=== PATIENT | female | born 1980 | race Caucasian/White ===

== ENCOUNTER 2020-08-29 08:03 | Outpatient (REF) | payer OTHER, SELFPAY ==
[2020-08-29 09:27] LABS: SARS COV2 PCR INHOUSE NEGATIVE (Negative)
== END 2020-08-29 08:04 | disposition home or self-care (01) ==
LOC: HO.LAB 08:03
PROVIDERS: Visit Provider Anesthesiology
DX: R05 Cough (principal); R09.89 Other specified symptoms and signs involving the circulatory and respiratory systems
CPT/HCPCS: 87635

== ENCOUNTER → 2021-08-03 15:29 | Outpatient (BNVA) | payer OTHER, SELFPAY | PROVIDERS: Visit Provider Advanced Practice Midwife ==

== ENCOUNTER 2021-09-28 13:56 | Outpatient (REF) | payer OTHER, SELFPAY ==
[2021-09-29 01:19] LABS: CT PCR NOT DETECTED (Not Detect.); NG PCR NOT DETECTED (Not Detect.)
[2021-09-30 10:45] LABS: BV Int Neg Control Negative (Negative); BV Int Pos Control Positive (Positive)
[2021-10-03 01:06] LABS: HPV mRNA E6/E7 rflx Not Detected (Not Detected)
== END 2021-09-28 13:57 | disposition home or self-care (01) ==
LOC: HO.LAB 13:56
PROVIDERS: Visit Provider Advanced Practice Midwife
DX: Z01.419 Encounter for gynecological examination (general) (routine) without abnormal findings (principal); Z11.51 Encounter for screening for human papillomavirus (HPV); Z11.3 Encounter for screening for infections with a predominantly sexual mode of transmission; Z20.2 Contact with and (suspected) exposure to infections with a predominantly sexual mode of transmission; Z87.42 Personal history of other diseases of the female genital tract; Z98.890 Other specified postprocedural states
CPT/HCPCS: 87480; 87491; 87510; 87591; 87624; 87660; 88142

== ENCOUNTER 2021-12-07 08:25 | Outpatient (REF) | payer OTHER, SELFPAY | END 2021-12-07 08:26 | disposition home or self-care (01) | LOC: HO.LAB 08:25 | PROVIDERS: PCP Internal Medicine; Visit Provider Advanced Practice Midwife | DX: Z30.09 Encounter for other general counseling and advice on contraception (principal); R87.615 Unsatisfactory cytologic smear of cervix; Z87.42 Personal history of other diseases of the female genital tract | CPT/HCPCS: 88142 ==

== ENCOUNTER → 2021-12-26 13:57 | Outpatient (BNVA) | payer OTHER, SELFPAY | PROVIDERS: PCP Internal Medicine; Visit Provider Advanced Practice Midwife | DX: Z30.430 Encounter for insertion of intrauterine contraceptive device (principal) | CPT/HCPCS: 58300; 81025 ==

== ENCOUNTER → 2022-01-23 12:53 | Outpatient (BNVA) | payer OTHER, SELFPAY | PROVIDERS: Visit Provider Advanced Practice Midwife ==

== ENCOUNTER → 2022-12-04 13:50 | Outpatient (BNVA) | payer OTHER, SELFPAY | PROVIDERS: Visit Provider Advanced Practice Midwife | DX: Z13.89 Encounter for screening for other disorder (principal) ==

== ENCOUNTER 2023-01-07 08:02 | Outpatient (REF) | payer OTHER, SELFPAY ==
--- NOTE | ~2023-01-07 | MM_ITS ---
EXAMINATION: MM SCREENING DIGITAL BREAST TOMOSYNTHESIS, BILATERAL CLINICAL INFORMATION: Screening. Asymptomatic. The lifetime risk of breast cancer based on the Tyrer-Cuzick Model is 7.6%. COMPARISON: Mammography: November 23, 2020 and April 29, 2019 TECHNIQUE: Digital breast tomosynthesis is performed in both the craniocaudal and mediolateral oblique views along with computer-aided detection (CAD). Synthesized 2D images are generated from the tomosynthesis. FINDINGS: The breasts are heterogeneously dense, which may obscure small masses (ACR BI-RADS breast composition Category c). There are no significant masses, abnormal calcifications, or other abnormalities. MM/MM tomosynthesis screening BI IMPRESSION: No significant changes from prior exam. ASSESSMENT: BI-RADS 1: Negative RECOMMENDATION: Routine annual mammography screening. This patient's information was entered into a reminder system with a target due date for their next mammogram.
== END 2023-01-07 08:03 | disposition home or self-care (01) ==
LOC: HO.MAMMO 08:02
PROVIDERS: PCP Internal Medicine; Visit Provider Advanced Practice Midwife
DX: Z12.31 Encounter for screening mammogram for malignant neoplasm of breast (principal)
CPT/HCPCS: 77063; 77067

== ENCOUNTER 2023-12-24 12:47 | Outpatient (AMB) | payer OTHER, SELFPAY ==
--- NOTE | 2023-12-24 12:55 | A.OFFVIS_ITS ---
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 Doing well with no concerns. Reports cyclic breast tenderness. She tries to eat healthy and stays active with exercise. Kyleena use, regular monthly menses. Currently is sexually active. She denies vaginal itching and irritation. STI screening offered; she declines. Denies family history of breast, ovarian. FH colon cancer, UTD with her screening. Last pap smear 2021, negative. Mammogram: 2022. [facility] Medical History SARAY I (cervical intraepithelial neoplasia I) Adult acne Hypertension Surgical History History of loop electrical excision procedure (LEEP) Hx of dilation and curettage Family History Maternal Uncle Colon cancer Maternal Uncle Intestinal cancer Social History Household Members: Spouse Alcohol intake: current Alcohol intake frequency: a few times a month Patient Tobacco Use Status: Never used Tobacco Current occupational status: employed and student Current occupation: [employer] Sexual orientation: Straight/Heterosexual Gender identity: Female Female Reproductive History Menstrual Age of Menarche: 13 Date of last menstrual period: 12/03/23 Total pregnancies: 3 Full term: 2 Number of Living Children: 2 Ab spontaneous: 1 Date of last pap smear: 12/07/21 (neg 09/28/21 unsat neg hpv) History of abnormal pap smear: Yes (leep 2005) Date of Mammogram: 01/07/23 (Birad 1) Review of Systems Const All systems reviewed & are unremarkable except as noted in HPI and below Reports as per HPI Eyes Reports no additional complaints ENT Reports no additional complaints Card Reports no additional complaints Resp Reports no additional complaints GI Reports as per HPI and Reports no additional complaints Reports as per HPI Musc Reports no additional complaints Skin/Breast Reports as per HPI Neuro Reports no additional complaints Psych Reports no additional complaints Endo Reports no additional complaints Krunal/Lymph Reports no additional complaints Aller/Immun Reports no additional complaints Physical Exam Vital Signs: Last Vital Signs BP 106/70 12/24/23 12:56 BMI result Body Mass Index 27.4 Const General: cooperative, healthy appearing, no acute distress, well developed and alert Orientation/consciousness: patient oriented x3 HEENT Head: Yes normal to inspection Eyes General: appearance normal, both eyes and all related structures Neck Neck: Yes normal visual inspection Thyroid: Thyroid normal Chest Chest palpation & inspection: normal inspection of the chest and other (no puckering, dimpling, peau de orange, retraction, discharge, masses) Breast/axilla inspection: normal inspection of the breasts Breast/axilla palpation: normal palpation of the breasts Resp Effort & Inspection: normal respiratory effort GI Inspection: Yes normal to inspection Palpation (GI): Soft to palpation Rectal Exam - Female: deferred General: Yes bladder normal to palpation External Female Exam: normal external appearance and normal appearance of the urethra Speculum Exam - Vagina: normal appearance of the vagina, normal palpation and normal vaginal discharge Speculum Exam - Cervix: normal appearance of the cervix, normal palpation and Other cervical findings present (Normal IUD strings) Bimanual exam- vagina & uterus: normal bimanual exam, normal palpation, uterine size normal, bladder normal to palpation, normal palpation and non-tender Bimanual Exam- Adnexa, other: no masses Skin General skin exam: no rashes or lesions noted Rashes: no rashes Neuro General: patient oriented x3 Cognition (Neuro): normal cognition Extrem General: Yes normal to inspection Psych Attitude: cooperative Thought process: Normal thought process present Assessment & Plan Assessment & Plan (1) Well woman exam with routine gynecological exam: Code(s): Z01.419 - Encounter for gynecological examination (general) (routine) without abnormal findings Plan: Discussed: Current recommendations for pap smears per ASCCP guidelines. Breast awareness and periodic breast exams. Maintain a healthy lifestyle including a well balanced diet and routine exercise. Mammogram yearly. Colonoscopy >45, or at risk sooner. Patient verbalizes understanding and agrees to the plan of care. She was given opportunity to ask questions and all questions were answered to the best of my ability. 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 This note is constructed using voice recognition software. While every effort has been made to ensure accuracy, hydraulic specialist errors may have been included. Orders: Orders MM tomosynthesis screening BI Today Z12.31 - Encounter for screening mammogram for malignant neoplasm of breast Coding Level of Care Code Est Pt Prev Care 40-64y([address]) Diagnoses Well woman exam with routine gynecological exam Z01.419
[2023-12-24 12:56] VITALS: BP 106/70; BMI 27.4
== END 2023-12-24 13:34 | disposition home or self-care (01) ==
PROVIDERS: PCP Internal Medicine; Visit Provider Advanced Practice Midwife
DX: Z01.419 Encounter for gynecological examination (general) (routine) without abnormal findings (principal)
CPT/HCPCS: 99396

== ENCOUNTER → 2023-12-24 12:47 | Outpatient (BNVA) | payer OTHER, SELFPAY | PROVIDERS: PCP Internal Medicine; Visit Provider Advanced Practice Midwife ==

== ENCOUNTER 2024-01-15 07:16 | Outpatient (REF) | payer OTHER, SELFPAY | END 2024-01-15 07:17 | disposition home or self-care (01) | LOC: HO.MAMMO 07:16 | PROVIDERS: PCP Internal Medicine; Visit Provider Internal Medicine | DX: Z12.31 Encounter for screening mammogram for malignant neoplasm of breast (principal) | CPT/HCPCS: 77063; 77067 ==

== ENCOUNTER → 2024-01-15 07:30 | Outpatient (BNV) | payer OTHER, SELFPAY | PROVIDERS: PCP Internal Medicine; Visit Provider Radiology Diagnostic Radiology | DX: Z12.31 Encounter for screening mammogram for malignant neoplasm of breast (principal) | CPT/HCPCS: 77063; 77067 ==

== ENCOUNTER 2025-01-20 07:32 | Outpatient (REF) | payer OTHER, SELFPAY | END 2025-01-20 07:33 | disposition home or self-care (01) | LOC: HO.MAMMO 07:32 | PROVIDERS: PCP Pediatrics; Visit Provider Internal Medicine | DX: Z12.31 Encounter for screening mammogram for malignant neoplasm of breast (principal) | CPT/HCPCS: 77063; 77067 ==

== ENCOUNTER → 2025-01-20 07:45 | Outpatient (BNV) | payer OTHER, SELFPAY | PROVIDERS: PCP Pediatrics; Visit Provider Internal Medicine | DX: Z12.31 Encounter for screening mammogram for malignant neoplasm of breast (principal) | CPT/HCPCS: 77063; 77067 ==

== ENCOUNTER 2025-05-19 13:02 | Outpatient (REF) | payer OTHER, SELFPAY | END 2025-05-19 13:03 | disposition home or self-care (01) | LOC: HO.LNP 13:02 | PROVIDERS: PCP Pediatrics; Visit Provider Advanced Practice Midwife | DX: Z01.419 Encounter for gynecological examination (general) (routine) without abnormal findings (principal) | CPT/HCPCS: 87626; 88175 ==

== ENCOUNTER 2025-05-19 13:02 | Outpatient (AMB) | payer OTHER, SELFPAY ==
--- OUTSIDE RECORDS SUMMARY | 2025-05-19 13:07 | XMS_ITS | Clinical Summary ---
Author Organization [address] Address [address] [place] [phone] Phone Care Team Providers Care Manual Arts Therapy Teacher Name Role Phone Anaya Cleary MD Primary Care Provider [phone] Allergies No known active allergies Medications ascorbic acid (VITAMIN C) 500 mg chewable tablet Take by mouth. Active BIOTIN ORAL by Does not apply route daily. Active cholecalciferol (VITAMIN D-3) 50 mcg (2,000 unit) capsule Take by mouth. Active GARLIC ORAL 1 Tab by Does not apply route daily. Active levonorgestreL (Kyleena) 17.5 mcg/24 hr (5 yrs) 19.5 mg intrauterine device IUD TO BE INSERTED ONE TIME BY PRESCRIBER. ROUTE INTRAUTERINE. 2 Active MULTIVITAMIN ORAL Take 1 tablet by mouth daily. Active OMEGA-3 FATTY ACIDS-FISH OIL ORAL Take 1 tablet by mouth daily. Active saccharomyces boulardii (FLORASTOR) 250 mg capsule Take by mouth. 4 Active lisinopriL (PRINIVIL,ZESTRIL ) 5 mg tablet Take 1 tablet (5 mg total) by mouth 1 (one) time each day. 90 tablet 1 5 Active Active Problems Problem Noted Date Diagnosed Date Hypertension 09/14/2010 Immunizations Name Administration Dates Next Due Influenza trivalent, 0.5mL, preservative free (Fluarix; FluLaval; Fluzone) ages 6mo and older (Afluria) 3 years and older 08/23/2020,08/25/2019,09/04/2018,2016,09/09/2016 Influenza, Unspecified 10/01/2024,2022,09/04/2022,2020 Pfizer SARS-CoV-2 COVID-19, mRNA, LNP-S, preservative free 08/30/2021 Tdap Tetanus diptheria acell ular pertussis (Boostrix; Adacel) 7yo and older 07/11/2021,10/03/2010 Surgical History Surgery Date Site/Laterality Comments OTHER SURGICAL HISTORY PROCEDURE: [place] DILATION & CURETTAGE DX&/THER NONOBSTETRIC Family History Medical History Relation Name Comments Hypertension Brother Hypertension Daughter Heart attack Father unknown cause; negative work up Hypertension Father Colon polyps Mother Hypertension Mother Dementia Paternal Grandmother Other: autism Son Colon cancer Uncle 1 maternal Cancer of Small Bowel Uncle 2 matern al Breast cancer Neg Hx Diabetes Neg Hx Ovarian cancer Neg Hx Stroke Neg Hx Uterine cancer Neg Hx Relation Name Status Comments Brother Alive Daughter Alive 2000; Isela; h ealthy Father Alive HTN, [place] (age 21 ) Maternal Grandfather Maternal Grandmother healthy Mother Alive HTN Paternal Grandfather Paternal Grandmother dementi a Son Alive 2003; Sameul; n onverbal autistic Uncle 1 Uncle 2 Social History Tobacco Use Types Packs/Day Years Used Date Smoking Tobacco: Never Smokeless Tobacco: Never Tobacco Cessation:Counseling Given: Not Answered Alcohol Use Standard Drinks/Week Comments Yes 0 (1 standard drink = 0.6 oz pur e alcohol) social Comments Unknown Sex and Gender Information Value Date Recorded Sex Assigned at Not on file Legal Sex Female 10:03 AM EST Gender Identity Not on file Sexual Orientation Not on file Obstetrics History Last Filed Vital Signs Vital Sign Reading Time Taken Comments Blood Pressure 118/72 02/10/2025 1:30 PM EDT Pulse 72 02/10/2025 1:30 PM EDT Temperature 36.7 C (98 F) 02/10/2025 1:30 PM EDT Respiratory Rate 12 02/10/2025 1:30 PM EDT Oxygen Saturation - - Inhaled Oxygen Concentration - - Weight 64.4 kg (142 lb) 02/10/2025 1:30 PM EDT Height 161.9 cm (5' 3.75 ) 02/10/2025 1:30 PM ED T Body Mass Index 24.57 02/10/2025 1:30 PM EDT Plan of Treatment Upcoming Encounters Date Type Department Care Team (Late st Contact Info) Description 08/18/2025 3:30 PM EDT Office Visit Adult Medicine [facility] [place] [address] [place] [phone] So [facility] [address] [place] [address] Health Maintenance Due Date Last Done Comments Hepatitis B Vaccines (1 of 3 - 19+ 3-dose series) 1998 Depression Screening 10/26/2022 HIV Screening 10/26/2022 Hepatitis C Screening 10/26/2022 Social Influencers of Health Screening 10/26/2022 Cervical Cancer Screening: Pap Smear 12/07/2024 12/07/2021 Hypertension/CHF/CAD Annual BMP Blood Test 02/18/2025 02/19/2024, 02/19/2024 Breast Cancer Screening 01/20/2026 01/21/20, 01/20/2025, 11/29/2021, Additional history exists Colorectal Cancer Screening: Colonoscopy 07/04/2027 07/04/2022 Cholesterol Screening (Lipid Panel) 02/18/2029 02/19/2024, 02/19/2024 DTaP,Tdap,and Td Vaccines (3 - Td or Tdap) 07/11/2031 07/11/2021, 10/03/2010 COVID-19 Vaccine Discontinued 08/30/2021, 09/2021, 11/06/2020 Influenza Vaccine Completed 10/01/2024, , 09/04/2022, Additional history exists HIB Vaccines Aged Out No longer eligi ble based on patient's age to complete this topic HPV Vaccines Aged Out No longer eligi ble based on patient's age to complete this topic Hepatitis A Vaccines Aged Out No long er eligible based on patient's age to complete this topic IPV Vaccines Aged Out No longer eligi ble based on patient's age to complete this topic MMR Vaccines Aged Out No longer eligi ble based on patient's age to complete this topic Meningococcal ACWY Vaccine Aged Out N o longer eligible based on patient's age to complete this topic Meningococcal B Vaccine Aged Out No l onger eligible based on patient's age to complete this topic Pneumococcal Vaccine: Pediatrics (0 to 5 Years) and At-Risk Patients (6 to 64 Years) Aged Out No longer eligible based on patient's age to complete this topic RSV Immunization Patients Under 20 months Aged Out No longer eligible based on patient's age to complete this topic Varicella Vaccines Aged Out No longer eligible based on patient's age to complete this topic Procedures Procedure Name Priority Date/Time Associated Diagnosis Comments EXTERNAL MAMMOGRAM REPORT 01/20/2025 ANNUAL BMP BLOOD TEST Routine 02/19/2024 LIPID PANEL Routine 02/19/2024 COLONOSCOPY Routine 07/04/2022 PAP SMEAR Routine 12/07/2021 from Last 3 Months or Most Recently Relevant to Health Maintenance Results * External Mammogram Report (01/20/2025) Anatomical Region Laterality Modality Mammography Provider [facility] IMG BI PROCEDURES Final Result * Annual BMP Blood Test (02/19/2024) Pathologist [facility] Annual BMP Blood Test ABSTRACTED [facility] Provider HEALTH MAINTENANCE Final Result * (ABNORMAL) Lipid panel (02/19/2024) Pathologist [facility] LDL/HDL Ratio 2 0 - 4 Triglycerides 36 0 - 150 mg/dL Cholesterol 197 0 - 200 mg/dL HDL 89 >=40 mg/dL LDL Cholesterol 101(A) 0 - 100 mg/dL Blood Venous blood specimen / Unknown Historical Provider LAB BLOOD ORDERABLES Dianna l Result * Colonoscopy (07/04/2022) Pathologist [facility] Colonoscopy NO INTERPRETATION , ABSTRACTED Anatomical Region Laterality Modality Other Historical Provider HEALTH MAINTENANCE Final Result * Pap Smear (12/07/2021) Pap smear NO INTERPRETATION , ABSTRACTED us Historical Provider HEALTH MAINTENANCE Final Result from Last 3 Months or Most Recently Relevant to Health Maintenance Insurance [address] [place] [address] Care Teams Manual Arts Therapy Teacher Relationship Specialty Start Date End Date Anaya Cleary MD [address] [place] [address] PCP - General Internal Medicine 02/09/25
--- NOTE | 2025-05-19 13:38 | MHC.OFFVIS ---
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 Doing well with no market investigator concerns. Regular monthly menses w/Kyleena/ Currently is sexually active. She denies vaginal itching or irritation. STI screening offered; she declines. She tries to eat healthy and stays active with exercise. Denies family history of breast or ovarian. FH colon cancer. Last pap smear 2021, unsatisfactory. LEEP 2005, CINI 2017. Mammogram: 2024. [facility] Medical History (Updated 05/19/25 @ 14:08 by Tameka Joe CNM) IUD (intrauterine device) in place SARAY I (cervical intraepithelial neoplasia I) Adult acne Hypertension Surgical History History of loop electrical excision procedure (LEEP) Hx of dilation and curettage Family History Maternal Uncle Colon cancer Maternal Uncle Intestinal cancer Social History Household Members: Spouse Alcohol intake: current Alcohol intake frequency: a few times a month Patient Tobacco Use Status: Never used Tobacco Current occupational status: employed and student Current occupation: [employer] Sexual orientation: Straight/Heterosexual Gender identity: Female Female Reproductive History Menstrual Age of Menarche: 13 Duration of menses: 3-5 days Date of last menstrual period: 04/20/25 control method: progestin IUCD (Kyleena ) Total pregnancies: 3 Full term: 2 Ab spontaneous: 1 Date of last pap smear: 12/07/21 (negative pap smear) History of abnormal pap smear: Yes (Leep 2005) Date of Mammogram: 01/20/25 (BI RAD 1) Review of Systems Const All systems reviewed & are unremarkable except as noted in HPI and below Reports as per HPI Eyes Reports no additional complaints ENT Reports no additional complaints Card Reports no additional complaints Resp Reports no additional complaints GI Reports as per HPI and Reports no additional complaints Reports as per HPI Musc Reports no additional complaints Skin/Breast Reports as per HPI Neuro Reports no additional complaints Psych Reports no additional complaints Endo Reports no additional complaints Krunal/Lymph Reports no additional complaints Aller/Immun Reports no additional complaints Physical Exam Vital Signs: Last Vital Signs BP 106/68 05/19/25 13:42 BMI result Body Mass Index 26.2 Const General: cooperative, healthy appearing, no acute distress, well developed and alert Orientation/consciousness: patient oriented x3 HEENT Head: Yes normal to inspection Eyes General: appearance normal, both eyes and all related structures Neck Neck: Yes normal visual inspection Thyroid: Thyroid normal Chest Chest palpation & inspection: normal inspection of the chest and other (no puckering, dimpling, peau de orange, retraction, discharge, masses) Breast/axilla inspection: normal inspection of the breasts Breast/axilla palpation: normal palpation of the breasts Resp Effort & Inspection: normal respiratory effort GI Inspection: Yes normal to inspection Palpation (GI): Soft to palpation Rectal Exam - Female: deferred General: Yes bladder normal to palpation External Female Exam: normal external appearance and normal appearance of the urethra Speculum Exam - Vagina: normal appearance of the vagina, normal palpation and normal vaginal discharge Speculum Exam - Cervix: normal appearance of the cervix, normal palpation, Cervical os closed (Stenotic) and Other cervical findings present (Post LEEP appearance, IUD strings at the os) Bimanual exam- vagina & uterus: normal bimanual exam, normal palpation, uterine size normal, bladder normal to palpation, normal palpation and non-tender Bimanual Exam- Adnexa, other: no masses Skin General skin exam: no rashes or lesions noted Rashes: no rashes Neuro General: patient oriented x3 Cognition (Neuro): normal cognition Extrem General: Yes normal to inspection Psych Attitude: cooperative Thought process: Normal thought process present Assessment & Plan Assessment & Plan (1) Well woman exam with routine gynecological exam: Code(s): Z01.419 - Encounter for gynecological examination (general) (routine) without abnormal findings Category: Medical Plan: Discussed: Current recommendations for pap smears per ASCCP guidelines. Pap obtained. Breast awareness and periodic breast exams. Mammogram yearly. Maintain a healthy lifestyle including a well balanced diet and routine exercise. Patient verbalizes understanding and agrees to the plan of care. She was given opportunity to ask questions and all questions were answered to the best of my ability. RTO in one year for annual market investigator examination. This note is constructed using voice recognition software. While every effort has been made to ensure accuracy, editor continuity and script errors may have been included. (2) SARAY I (cervical intraepithelial neoplasia I): Comment: 2018 Code(s): N87.0 - Mild cervical dysplasia Category: Medical Plan Pap smear obtained await results for final plan of care. Orders: Orders Pap Smear Today Z01.419 - Encounter for gynecological examination (general) (routine) without abnormal findings HPV High risk Today Z01.419 - Encounter for gynecological examination (general) (routine) without abnormal findings Coding Level of Care Code Est Pt Prev Care 40-64y(93930) Diagnoses Well woman exam with routine gynecological exam Z01.419 SARAY I (cervical intraepithelial neoplasia I) N87.0
[2025-05-19 13:42] VITALS: BP 106/68; BMI 26.2
== END 2025-05-19 14:38 | disposition home or self-care (01) ==
LOC: HO.HWS 13:03
PROVIDERS: PCP Pediatrics; Visit Provider Advanced Practice Midwife
DX: Z01.419 Encounter for gynecological examination (general) (routine) without abnormal findings (principal); N87.0 Mild cervical dysplasia
CPT/HCPCS: 99396; 99459